=== PATIENT | male | born 1935 | race Caucasian/White ===

== ENCOUNTER → 2017-03-01 | Outpatient (CLI) | payer MEDICARE, BC ==
[2013-11-27 14:43] VITALS: BP 117/57
[~2017-03-01] MED LIST: AMARYL2 MG PO; AMOXICILLIN 8751 TAB PO; BENADRYL25 M2 PO; CARDI-OMEGA1000 MG PO; COLACE 100100 MG/CAP PO; COUMADIN2 MG PO; FERROUS SU325 MG/TAB PO; INSULIN 70/3100 U/ML SQ; JANUVIA100 MG PO; JANUVIA50 MG PO; LANTUS PEN100 U/ML SC; LASIX40 MG PO; LORTAB 5/500 501 TAB PO; LOVASTATIN10 MG PO; METFORMIN1000 MG PO; METRONIDAZOLE500 M1 PO; MUPIROCIN2% TP; NIACIN1000 MG PO; POTASSIUM CHLO10 ME5 PO; ST. JOSEPH81 M2 PO; TOPROL XL100 MG PO; TRIAMTERENE/HCT1 TAB PO; VITAMIN C PURE500 M1 PO; ZESTRIL 5MG5 MG PO; ZYLOPRIM 300MG300 MG PO
== END ==
LOC: LAB 10:02
DX: R07.9 Chest pain, unspecified (principal)

== ENCOUNTER 2017-04-24 01:13 | Emergency (ER) | payer MEDICARE, BC ==
[~2017-04-24] VITALS: Ht 190.5 cm; Wt 100.0 kg
[~2017-04-24 01:13] MED LIST changes: -INSULIN 70/3100 U/ML SQ; -METRONIDAZOLE500 M1 PO
[2017-04-24] MEDS ORDERED: INSULIN 70/3100 U/ML SQ ×2 (02:34)
[2017-04-24] MEDS ORDERED: METRONIDAZOLE500 M1 PO (04:16)
[2017-04-24 04:35] VITALS: BP 136/64
== END 2017-04-24 04:35 | disposition home or self-care (01) ==
LOC: ED 01:13
DX: R19.7 Diarrhea, unspecified (principal); R11.0 Nausea; R10.84 Generalized abdominal pain; I87.8 Other specified disorders of veins; E11.9 Type 2 diabetes mellitus without complications; Z79.4 Long term (current) use of insulin; I25.10 Atherosclerotic heart disease of native coronary artery without angina pectoris; I10 Essential (primary) hypertension; I25.2 Old myocardial infarction
CPT/HCPCS: J1885

== ENCOUNTER 2017-07-17 08:08 | Emergency (ER) | payer MEDICARE, BC ==
[~2017-07-17] VITALS: Wt 110.0 kg
[~2017-07-17 08:08] MED LIST changes: +INSULIN 70/3100 U/ML SQ; +METRONIDAZOLE500 M1 PO
[2017-07-17 08:48] LABS: HEMATOCRIT 38.7 % (42.0-52.0); HEMOGLOBIN 12.9 g/dL (13.5-18.0); MEAN CELL VOLUME 101 fl (78-100); MEAN CORPUSCULAR HEMOGLOBIN 34 pg (27-31); MEAN CORPUSCULAR HGB CONC 33 g/dL (33-37); MEAN PLATELET VOLUME 10.5 fl (7.4-10.4); PLATELET COUNT 105 K/mm3 (130-400); RED BLOOD COUNT 3.85 M/mm3 (4.20-5.60); RED CELL DISTRIBUTION WIDTH 14.9 % (11.5-14.5); WHITE BLOOD COUNT 8.3 K/mm3 (4.8-10.8)
[2017-07-17 08:53] LABS: ALBUMIN 3.8 g/dL (3.5-5.0); BUN/CREATININE RATIO 31.9 (6.0-26.0); CALCIUM 9.3 mg/dL (8.4-10.2); POTASSIUM 4.6 mmol/L (3.6-5.0); TOTAL BILIRUBIN 2.4 mg/dL (0.2-1.3)
[2017-07-17 09:03] LABS: URINE APPEARANCE CLEAR; URINE COLOR YELLOW
[2017-07-17] MEDS ORDERED: PROTONIX TR40 M1 PO (09:03)
[2017-07-17] MEDS ORDERED: POTASSIUM CHLO20 ME3 PO (09:03)
[2017-07-17 09:04] LABS: URINE BILIRUBIN NEGATIVE (NEGATIVE); URINE BLOOD NEGATIVE (NEGATIVE); URINE GLUCOSE NEGATIVE (NEGATIVE); URINE KETONE NEGATIVE (NEGATIVE); URINE LEUKOCYTE ESTERASE NEGATIVE (NEGATIVE); URINE MUCUS PRESENT (NOT PRESENT); URINE NITRATE NEGATIVE (NEGATIVE); URINE PROTEIN(semi-quant) TRACE mg/dL (NEGATIVE); URINE UROBILINOGEN NORMAL (NORMAL); URINE WBC 0-1 /hpf (0-3)
[2017-07-17] MEDS ORDERED: INDERAL 10MG10 MG PO (09:06)
[2017-07-17] MEDS ORDERED: NATURAL VITAM1000 MG PO (09:06)
[2017-07-17] MEDS ORDERED: ALDACTONE25 M1 PO (09:06)
[2017-07-17 09:13] LABS: BAND 5 % (0-10); NEUTROPHILS 78 % (42-75)
[2017-07-17 09:14] LABS: LYMPHOCYTE 5 % (20-51); MONOCYTE 9 % (3-10)
[2017-07-17 18:42] VITALS: BP 139/68
[2017-07-18] MEDS ORDERED: CARBIDOPA/LEVODOPA PO (15:19)
[2017-07-18] MEDS ORDERED: GLIMEPIRIDE2 M1 PO (15:21)
[2017-07-18] MEDS ORDERED: FUROSEMIDE40 MG PO (15:36)
[2017-07-18] MEDS ORDERED: POTASSIUM CHLO20 ME3 PO (15:36)
[2017-07-18] MEDS ORDERED: INSULIN 70/3100 U/ML SQ ×2 (15:36)
== END 2017-07-17 18:17 | disposition other institution (70) ==
LOC: ED 08:08
PROVIDERS: Family Medicine
DX: F03.90 Unspecified dementia, unspecified severity, without behavioral disturbance, psychotic disturbance, mood disturbance, and anxiety (principal); E86.9 Volume depletion, unspecified; D64.9 Anemia, unspecified; E11.9 Type 2 diabetes mellitus without complications; I11.0 Hypertensive heart disease with heart failure; I50.9 Heart failure, unspecified; I25.2 Old myocardial infarction; R26.2 Difficulty in walking, not elsewhere classified; R25.1 Tremor, unspecified; Z79.82 Long term (current) use of aspirin; Z79.4 Long term (current) use of insulin; Z87.891 Personal history of nicotine dependence
CPT/HCPCS: A4354; J7030

== ENCOUNTER 2017-07-17 18:17 | Inpatient (IN) | payer MEDICARE, BC ==
[~2017-07-17] VITALS: Ht 182.9 cm; Wt 114.5 kg
[~2017-07-17 18:17] MED LIST changes: +ALDACTONE25 M1 PO; +INDERAL 10MG10 MG PO; +NATURAL VITAM1000 MG PO; +POTASSIUM CHLO20 ME3 PO; +PROTONIX TR40 M1 PO
[2017-07-17 18:53] VITALS: BP 139/68
[2017-07-17 18:56] VITALS: BP 139/68
--- NOTE | 2017-07-17 21:01 | NUR ---
DUE TO PATIENT COMPLAINING OF IV SITE AT [facility], AND DUE TO PATIENT MAINTAINING DIFFICULTY IN KEEP ING HIS ARM STRAIGHT TO KEEP THE FLUIDS INFUSING ORDERED, A 2ND IV SITE IS STARTED IN THE RIGHT UPPER ARM. THE [facility] SITE IS LEFT INTACT AT THIS TIME, DUE TO PATIENT BEING AN EXTREMELY DIFFICULT STICK, AND IT IS WRAPPED WITH COBAN.
[2017-07-17 23:24] VITALS: BP 111/63
[2017-07-18 03:03] VITALS: BP 103/39
[2017-07-18 05:52] VITALS: BP 119/62
[2017-07-18 06:22] VITALS: BP 119/62
--- NOTE | 2017-07-18 08:45 | NUR ---
currently in chair at bedside, IV fluids patent to right upper arm, IV site to right AC due to patients complaint, he denies discomfort, states he is ready for discharge.
[2017-07-18 10:58] VITALS: BP 107/47
--- NOTE | 2017-07-18 13:44 | NUR ---
Dr. García is aware of patients desire for dismissal
--- NOTE | 2017-07-18 14:13 | NUR ---
lab here, specs drawn
[2017-07-18 14:24] LABS: HEMATOCRIT 34.8 % (42.0-52.0); HEMOGLOBIN 11.2 g/dL (13.5-18.0); MEAN CELL VOLUME 103 fl (78-100); MEAN CORPUSCULAR HEMOGLOBIN 33 pg (27-31); MEAN CORPUSCULAR HGB CONC 32 g/dL (33-37); MEAN PLATELET VOLUME 9.9 fl (7.4-10.4); PLATELET COUNT 86 K/mm3 (130-400); RED BLOOD COUNT 3.37 M/mm3 (4.20-5.60); RED CELL DISTRIBUTION WIDTH 15.3 % (11.5-14.5); WHITE BLOOD COUNT 7.7 K/mm3 (4.8-10.8)
[2017-07-18 14:31] LABS: BUN/CREATININE RATIO 37.5 (6.0-26.0); CALCIUM 8.5 mg/dL (8.4-10.2)
[2017-07-18 14:39] LABS: BAND 7 % (0-10); LYMPHOCYTE 12 % (20-51); MONOCYTE 11 % (3-10); NEUTROPHILS 67 % (42-75)
--- NOTE | 2017-07-18 15:13 | NUR ---
Dr. García visits with patient and spouse
[2017-07-18] MEDS ORDERED: CARBIDOPA/LEVODOPA PO (15:19)
[2017-07-18] MEDS ORDERED: GLIMEPIRIDE2 M1 PO (15:21)
[2017-07-18 15:32] VITALS: BP 112/50
[2017-07-18] MEDS ORDERED: INSULIN 70/3100 U/ML SQ ×2 (15:36)
[2017-07-18] MEDS ORDERED: FUROSEMIDE40 MG PO (15:36)
[2017-07-18] MEDS ORDERED: POTASSIUM CHLO20 ME3 PO (15:36)
--- NOTE | 2017-07-18 15:55 | NUR ---
HOME ISNTRUCTIONS REVIEWED WITH PATIENT AND SPOUSE, THEY BOTH EXPRESS UNDERSTANDING OF INFO GIVEN AND PLAN TO HEAD TO [facility] TO FILL NEW SCRIPT, DISMISSED PER W/C TO POV TO CARE OF SPOUSE, HE AMBULATES STEADILY FROM W/C TO VEHICLE.
== END 2017-07-18 15:55 | disposition home or self-care (01) | DRG 641 ==
LOC: MED/SURG 18:17
PROVIDERS: ADMIT Family Medicine
DX: E86.9 Volume depletion, unspecified (principal); G20 Parkinson's disease; G30.9 Alzheimer's disease, unspecified; F02.80 Dementia in other diseases classified elsewhere, unspecified severity, without behavioral disturbance, psychotic disturbance, mood disturbance, and anxiety; I48.91 Unspecified atrial fibrillation; E11.9 Type 2 diabetes mellitus without complications; I25.2 Old myocardial infarction; I11.0 Hypertensive heart disease with heart failure; I50.9 Heart failure, unspecified; F17.210 Nicotine dependence, cigarettes, uncomplicated
CPT/HCPCS: J1815; J7030

== ENCOUNTER → 2017-09-03 | Outpatient (CLI) | payer MEDICARE, BC ==
[~2017-09-03] MED LIST changes: +CARBIDOPA/LEVODOPA PO; +FUROSEMIDE40 MG PO; +GLIMEPIRIDE2 M1 PO
[2017-09-03 12:08] LABS: BUN/CREATININE RATIO 30.3 (6.0-26.0); CALCIUM 8.8 mg/dL (8.4-10.2); POTASSIUM 3.8 mmol/L (3.6-5.0)
== END ==
LOC: LAB 11:41
PROVIDERS: Physician Assistant Medical
DX: I50.33 Acute on chronic diastolic (congestive) heart failure (principal)

== ENCOUNTER → 2017-09-21 | Outpatient (CLI) | payer MEDICARE, BC ==
[~2017-09-21] MED LIST changes: +CONSTULOSE10 GM/151 PO; +IRON90 MG PO; +METOLAZONE5 MG PO
[2017-09-21 12:57] LABS: BUN/CREATININE RATIO 26.1 (6.0-26.0); CALCIUM 8.7 mg/dL (8.4-10.2); POTASSIUM 4.6 mmol/L (3.6-5.0)
== END ==
LOC: LAB 12:15
DX: I50.33 Acute on chronic diastolic (congestive) heart failure (principal)

== ENCOUNTER 2017-09-30 10:00 | Outpatient (RCR) | payer MEDICARE, BC ==
[~2017-09-30 10:00] MED LIST changes: -CONSTULOSE10 GM/151 PO; -IRON90 MG PO; +LASIX40 M1 PO; -LASIX40 MG PO; -METOLAZONE5 MG PO; +ST. JOSEPH ASPI81 M1 PO; -ST. JOSEPH81 M2 PO; -ZYLOPRIM 300MG300 MG PO; +ZYLOPRIM300 MG PO
== END 2017-09-30 10:30 | disposition home or self-care (01) ==
LOC: PT 10:00
DX: R53.1 Weakness (principal)
CPT/HCPCS: G8978-GP; G8979-GP

== ENCOUNTER 2017-10-04 02:17 | Emergency (ER) | payer MEDICARE, BC ==
[~2017-10-04] VITALS: Ht 180.3 cm; Wt 114.4 kg
[~2017-10-04 02:17] MED LIST changes: -LASIX40 M1 PO; +LASIX40 MG PO; -ST. JOSEPH ASPI81 M1 PO; +ST. JOSEPH81 M2 PO; +ZYLOPRIM 300MG300 MG PO; -ZYLOPRIM300 MG PO
[2017-10-04] MEDS ORDERED: IRON90 MG PO (02:49)
[2017-10-04] MEDS ORDERED: INDERAL 10MG10 MG PO (02:51)
[2017-10-04] MEDS ORDERED: CONSTULOSE10 GM/151 PO (02:54)
[2017-10-04] MEDS ORDERED: METOLAZONE5 MG PO (02:55)
[2017-10-04 04:19] LABS: BUN/CREATININE RATIO 31.2 (6.0-26.0); CALCIUM 7.8 mg/dL (8.4-10.2); POTASSIUM 3.7 mmol/L (3.6-5.0)
[2017-10-04 04:23] LABS: URINE APPEARANCE HAZY; URINE BILIRUBIN NEGATIVE (NEGATIVE); URINE BLOOD NEGATIVE (NEGATIVE); URINE COLOR YELLOW; URINE GLUCOSE NEGATIVE (NEGATIVE); URINE KETONE NEGATIVE (NEGATIVE); URINE LEUKOCYTE ESTERASE TRACE (NEGATIVE); URINE NITRATE NEGATIVE (NEGATIVE); URINE PROTEIN(semi-quant) TRACE mg/dL (NEGATIVE); URINE UROBILINOGEN NORMAL (NORMAL)
[2017-10-04 06:58] VITALS: BP 119/56
== END 2017-10-04 06:58 | disposition home or self-care (01) ==
LOC: ED 02:17
PROVIDERS: Family Medicine
DX: R33.9 Retention of urine, unspecified (principal); R10.31 Right lower quadrant pain; R10.32 Left lower quadrant pain; I11.0 Hypertensive heart disease with heart failure; I50.9 Heart failure, unspecified; E11.9 Type 2 diabetes mellitus without complications; G20 Parkinson's disease; Z79.4 Long term (current) use of insulin

== ENCOUNTER 2017-10-16 17:31 | Inpatient (IN) | payer MEDICARE, BC ==
[~2017-10-16] VITALS: Ht 180.3 cm; Wt 119.5 kg
[~2017-10-16 17:31] MED LIST changes: +CONSTULOSE10 GM/151 PO; +IRON90 MG PO; +LASIX40 M1 PO; -LASIX40 MG PO; +METOLAZONE5 MG PO; +ST. JOSEPH ASPI81 M1 PO; -ST. JOSEPH81 M2 PO; -ZYLOPRIM 300MG300 MG PO; +ZYLOPRIM300 MG PO
[2017-10-17 16:10] VITALS: BP 115/54
[2017-10-17 18:22] VITALS: BP 125/58
[2017-10-17] MEDS ORDERED: VITAMIN C PURE500 M1 PO (19:10)
[2017-10-17] MEDS ORDERED: GLIMEPIRIDE4 MG PO (19:13)
[2017-10-17] MEDS ORDERED: SINEMET 25-1001 EACH PO (19:58)
[2017-10-17] MEDS ORDERED: GENERLAC10 GM/15 M PO (20:00)
[2017-10-17] MEDS ORDERED: FLOMAX0.4 MG PO (20:05)
[2017-10-18 06:56] VITALS: BP 100/55
[2017-10-18 08:35] VITALS: BP 104/50
[2017-10-18 14:30] VITALS: BP 104/58
[2017-10-18 15:56] LABS: BUN/CREATININE RATIO 25.2 (6.0-26.0); CALCIUM 8.1 mg/dL (8.4-10.2); POTASSIUM 4.2 mmol/L (3.6-5.0)
[2017-10-18 16:07] LABS: HEMATOCRIT 28.3 % (42.0-52.0); MEAN CELL VOLUME 93 fl (78-100); MEAN CORPUSCULAR HEMOGLOBIN 26 pg (27-31); MEAN PLATELET VOLUME 10.5 fl (7.4-10.4); PLATELET COUNT 87 K/mm3 (130-400); RED BLOOD COUNT 3.06 M/mm3 (4.20-5.60); WHITE BLOOD COUNT 6.8 K/mm3 (4.8-10.8)
[2017-10-18 16:08] LABS: MEAN CORPUSCULAR HGB CONC 28 g/dL (33-37); RED CELL DISTRIBUTION WIDTH 25.1 % (11.5-14.5)
[2017-10-18 16:09] LABS: LYMPHOCYTE 8 % (20-51); MONOCYTE 9 % (3-10); NEUTROPHILS 81 % (42-75)
[2017-10-18 18:16] VITALS: BP 101/43
[2017-10-19 06:48] VITALS: BP 110/48
[2017-10-19 18:08] VITALS: BP 100/45
[2017-10-20 01:13] VITALS: BP 132/60
[2017-10-20 06:33] VITALS: BP 117/62
[2017-10-20 13:46] LABS: BUN/CREATININE RATIO 30.3 (6.0-26.0); CALCIUM 8.3 mg/dL (8.4-10.2); POTASSIUM 4.5 mmol/L (3.6-5.0)
[2017-10-20 13:56] LABS: MEAN CELL VOLUME 93 fl (78-100); MEAN CORPUSCULAR HEMOGLOBIN 27 pg (27-31); MEAN PLATELET VOLUME 10.3 fl (7.4-10.4); PLATELET COUNT 89 K/mm3 (130-400); WHITE BLOOD COUNT 7.6 K/mm3 (4.8-10.8)
[2017-10-20 14:21] LABS: HEMOGLOBIN 7.8 g/dL (13.5-18.0); MEAN CORPUSCULAR HGB CONC 29 g/dL (33-37); RED CELL DISTRIBUTION WIDTH 25.4 % (11.5-14.5)
[2017-10-20 16:14] LABS: MONOCYTE 8 % (3-10); NEUTROPHILS 79 % (42-75)
[2017-10-20 19:29] VITALS: BP 105/45
[2017-10-21 06:23] VITALS: BP 114/55
[2017-10-21 18:24] VITALS: BP 120/53
[2017-10-22 06:22] VITALS: BP 133/70
[2017-10-22 18:41] VITALS: BP 109/50
[2017-10-23 06:24] VITALS: BP 120/56
[2017-10-23 18:43] VITALS: BP 113/55
[2017-10-23 19:34] LABS: HEMATOCRIT 24.7 % (42.0-52.0); MEAN CELL VOLUME 91 fl (78-100); MEAN CORPUSCULAR HEMOGLOBIN 27 pg (27-31); MEAN CORPUSCULAR HGB CONC 30 g/dL (33-37); MEAN PLATELET VOLUME 10.3 fl (7.4-10.4); PLATELET COUNT 93 K/mm3 (130-400); RED BLOOD COUNT 2.71 M/mm3 (4.20-5.60); WHITE BLOOD COUNT 6.2 K/mm3 (4.8-10.8)
[2017-10-23 19:40] LABS: ALBUMIN 2.7 g/dL (3.5-5.0); CALCIUM 7.9 mg/dL (8.4-10.2); POTASSIUM 5.3 mmol/L (3.6-5.0); TOTAL BILIRUBIN 0.9 mg/dL (0.2-1.3); TOTAL PROTEIN 7.2 g/dL (6.3-8.2)
[2017-10-23 19:51] LABS: HEMOGLOBIN 7.3 g/dL (13.5-18.0); RED CELL DISTRIBUTION WIDTH 25.3 % (11.5-14.5)
[2017-10-23 22:45] LABS: URINE APPEARANCE CLEAR; URINE BILIRUBIN NEGATIVE (NEGATIVE); URINE BLOOD NEGATIVE (NEGATIVE); URINE COLOR YELLOW; URINE GLUCOSE NEGATIVE (NEGATIVE); URINE KETONE NEGATIVE (NEGATIVE); URINE NITRATE NEGATIVE (NEGATIVE); URINE PROTEIN(semi-quant) TRACE mg/dL (NEGATIVE); URINE UROBILINOGEN NORMAL (NORMAL)
[2017-10-23 22:46] LABS: URINE LEUKOCYTE ESTERASE TRACE (NEGATIVE)
[2017-10-24 06:28] VITALS: BP 119/55
[2017-10-24 07:21] LABS: LYMPHOCYTE 11 % (20-51); MONOCYTE 11 % (3-10); NEUTROPHILS 71 % (42-75)
[2017-10-24 18:28] VITALS: BP 109/56
[2017-10-25 06:23] VITALS: BP 117/58
[2017-10-25 08:09] LABS: HEMATOCRIT 25.2 % (42.0-52.0); MEAN CELL VOLUME 91 fl (78-100); MEAN CORPUSCULAR HEMOGLOBIN 27 pg (27-31); MEAN CORPUSCULAR HGB CONC 30 g/dL (33-37); MEAN PLATELET VOLUME 9.7 fl (7.4-10.4); PLATELET COUNT 87 K/mm3 (130-400); RED BLOOD COUNT 2.78 M/mm3 (4.20-5.60)
[2017-10-25 08:13] LABS: ALBUMIN 2.8 g/dL (3.5-5.0); BUN/CREATININE RATIO 29.4 (6.0-26.0); CALCIUM 8.1 mg/dL (8.4-10.2); TOTAL BILIRUBIN 1.4 mg/dL (0.2-1.3); TOTAL PROTEIN 7.6 g/dL (6.3-8.2)
[2017-10-25 08:19] LABS: HEMOGLOBIN 7.5 g/dL (13.5-18.0); RED CELL DISTRIBUTION WIDTH 25.1 % (11.5-14.5)
[2017-10-25 08:36] LABS: LYMPHOCYTE 6 % (20-51); MONOCYTE 10 % (3-10); NEUTROPHILS 77 % (42-75)
[2017-10-25 08:38] LABS: MICROCYTOSIS 1+; OVALOCYTES 2+; TARGET CELLS 1+
[2017-10-25 08:54] LABS: PROTHROMBIN TIME 15.3 SECONDS (9.0-12.0)
[2017-10-25 13:27] VITALS: BP 115/60
[2017-10-25 18:47] VITALS: BP 128/64
[2017-10-25 22:46] LABS: URINE APPEARANCE CLEAR; URINE BILIRUBIN NEGATIVE (NEGATIVE); URINE BLOOD NEGATIVE (NEGATIVE); URINE COLOR YELLOW; URINE GLUCOSE NEGATIVE (NEGATIVE); URINE KETONE NEGATIVE (NEGATIVE); URINE LEUKOCYTE ESTERASE TRACE (NEGATIVE); URINE NITRATE NEGATIVE (NEGATIVE); URINE PROTEIN(semi-quant) NEGATIVE (NEGATIVE); URINE UROBILINOGEN NORMAL (NORMAL)
[2017-10-25 22:50] VITALS: BP 106/51
[2017-10-26 03:20] VITALS: BP 103/53
[2017-10-26 06:48] VITALS: BP 115/56
[2017-10-26 07:09] LABS: MEAN CELL VOLUME 90 fl (78-100); MEAN CORPUSCULAR HEMOGLOBIN 27 pg (27-31); MEAN CORPUSCULAR HGB CONC 30 g/dL (33-37); MEAN PLATELET VOLUME 9.7 fl (7.4-10.4); PLATELET COUNT 88 K/mm3 (130-400); RED BLOOD COUNT 2.66 M/mm3 (4.20-5.60); WHITE BLOOD COUNT 5.6 K/mm3 (4.8-10.8)
[2017-10-26 07:19] LABS: ALBUMIN 2.8 g/dL (3.5-5.0); BUN/CREATININE RATIO 28.3 (6.0-26.0); CALCIUM 8.2 mg/dL (8.4-10.2); POTASSIUM 5.4 mmol/L (3.6-5.0); TOTAL BILIRUBIN 1.1 mg/dL (0.2-1.3); TOTAL PROTEIN 7.3 g/dL (6.3-8.2)
[2017-10-26 07:21] LABS: HEMOGLOBIN 7.3 g/dL (13.5-18.0); RED CELL DISTRIBUTION WIDTH 25.3 % (11.5-14.5)
[2017-10-26 07:32] LABS: LYMPHOCYTE 4 % (20-51); MONOCYTE 12 % (3-10); NEUTROPHILS 82 % (42-75); TARGET CELLS 1+
[2017-10-26 07:33] LABS: OVALOCYTES 1+
[2017-10-26 12:10] VITALS: BP 115/56
== END 2017-10-26 11:40 | disposition short-term general hospital (02) | DRG 948 ==
LOC: MED/SURG 17:31
PROVIDERS: Nurse Practitioner Primary Care; Physician Assistant; ADMIT Family Medicine
DX: R53.81 Other malaise (principal); L03.116 Cellulitis of left lower limb; L03.115 Cellulitis of right lower limb; I48.2 Chronic atrial fibrillation; L27.1 Localized skin eruption due to drugs and medicaments taken internally; E11.9 Type 2 diabetes mellitus without complications; G20 Parkinson's disease; I71.4 Abdominal aortic aneurysm, without rupture; J44.9 Chronic obstructive pulmonary disease, unspecified; K74.60 Unspecified cirrhosis of liver; N18.3 Chronic kidney disease, stage 3 (moderate); R19.7 Diarrhea, unspecified; Z95.1 Presence of aortocoronary bypass graft; Z95.2 Presence of prosthetic heart valve; Z96.642 Presence of left artificial hip joint; Z79.4 Long term (current) use of insulin; Z87.891 Personal history of nicotine dependence
CPT/HCPCS: J1815; J7030